=== PATIENT | male | born 1985 | race Caucasian/White ===

== ENCOUNTER 2022-09-01 11:13 | Emergency (ER) | payer OTHER ==
[~2022-09-01] VITALS: Ht 172.7 cm; Wt 92.9 kg
[2022-09-01 11:14] VITALS: BP 131/85
[2022-09-01] MEDS ORDERED: CETI10CA2 PO (11:22)
== END 2022-09-01 12:37 | disposition home or self-care (01) ==
LOC: M ED 11:13
DX: M66.821 Spontaneous rupture of other tendons, right upper arm (principal); S43.431A Superior glenoid labrum lesion of right shoulder, initial encounter; X58.XXXA Exposure to other specified factors, initial encounter; Y99.1 Military activity

== ENCOUNTER 2022-09-09 08:01 | Day surgery (SDC) | payer OTHER ==
[~2022-09-09] VITALS: Ht 172.7 cm; Wt 90.7 kg
[~2022-09-09 08:01] MED LIST: CETI10CA2 PO; ceFAZolin SOD 2 GM in IV 1 EA IV ONE
[2022-09-09] MEDS ORDERED: LR 1,000 ML IV SCH ×2 (08:25→12:00)
[2022-09-09] MEDS ORDERED: EPINEPHrine INJ 1 MG/ML 1ML AMP PN ONE (08:40)
[2022-09-09] MEDS ORDERED: LIDOCAINE 1% SDV 5ML VIAL PN ONE (08:40)
[2022-09-09] MEDS ORDERED: fentaNYL 100 MCG/2 ML INJECTION IV PRN ×2 (08:40→12:00)
[2022-09-09] MEDS ORDERED: ROPIvacaine 0.5% 30ML VIAL PN ONE (08:40)
[2022-09-09] MEDS ORDERED: LIDOCAINE W/EPINEPHRINE 1% 20ML VIAL As Ordered ONE (08:53)
[2022-09-09] MEDS ORDERED: BACITRACIN OINTMENT 30GM TUBE As Ordered ONE (08:53)
[2022-09-09] MEDS: MIDAZOLAM INJ 2MG/2ML VIAL IV PRN ×2 (08:56→08:59)
[2022-09-09] MEDS ORDERED: LIDOCAINE 2% 100MG/5ML SDV (FOR ANES.) As Ordered ONE (09:36)
[2022-09-09] MEDS ORDERED: ONDANSETRON 4MG 2ML VIAL As Ordered ONE (09:36)
[2022-09-09] MEDS ORDERED: fentaNYL 100 MCG/2 ML INJECTION As Ordered ONE (09:36)
[2022-09-09] MEDS ORDERED: MIDAZOLAM INJ 2MG/2ML VIAL As Ordered ONE (09:36)
[2022-09-09] MEDS ORDERED: propofoL 200 MG/20 ML VIAL As Ordered ONE (09:36)
[2022-09-09] MEDS ORDERED: ACETAMINOPHEN 1000MG 100ML IV BAG As Ordered ONE (10:02)
[2022-09-09] MEDS ORDERED: PHENYLephrine 500MCG 5ML (100MCG/ML) SYRINGE As Ordered ONE (10:54)
[2022-09-09] MEDS ORDERED: ONDANSETRON 4MG 2ML VIAL IV PRN (12:00)
[2022-09-09] MEDS ORDERED: oxyCODONE 5MG TAB PO PRN (12:00)
[2022-09-09] MEDS ORDERED: PERC5TAB12 PO (13:11)
[2022-09-09 14:25] VITALS: BP 121/65
[2022-09-09] MEDS ORDERED: KETOROLAC 60MG 2ML VIAL As Ordered ONE (15:26)
== END 2022-09-09 14:25 | disposition home or self-care (01) ==
LOC: M SDC 08:01
PROVIDERS: ATTEND Orthopaedic Surgery Hand Surgery
DX: S46.211A Strain of muscle, fascia and tendon of other parts of biceps, right arm, initial encounter (principal); Y93.75 Activity, martial arts; Y92.318 Other athletic court as the place of occurrence of the external cause; Y99.9 Unspecified external cause status
CPT/HCPCS: 24342; 64415; 76000; C1713; C1762; J0131; J0171; J0690; J1100; J1885; J2250; J2370; J2405; J2795; J3010